=== PATIENT | male | born 1955 | race Caucasian/White ===

== ENCOUNTER 2016-12-10 18:28 | Emergency (ER) | payer OTHER ==
[2016-12-10] MEDS ORDERED: IOPAMIDOL 300 (61%) 150 ML VIAL IV ONE (18:29)
[2016-12-10 21:14] LABS: ABSOLUTE NEUTROPHIL COUNT 3.1 K/mm3 (1.8-7.7); BASO % 0.7 % (0.2-1.0); EOS # 0.2 (0.0-0.5); EOS % 3.2 % (0.9-2.9); HEMATOCRIT 37.3 % (32.0-52.0); HEMOGLOBIN 12.8 gm/l (14.0-18.0); IMM NEUT% 0.4 % (0-1); LYMPH # 1.7 (1.0-4.8); LYMPH % 29.8 % (15-45); MEAN CELL VOLUME 94.4 fl (80.0-94.0); MEAN CORPUSCULAR HEMOGLOBIN 32.4 pg (27.0-31.0); MEAN CORPUSCULAR HGB CONC 34.3 g/dl (33.0-37.0); MEAN PLATELET VOLUME 8.9 fl (7.4-10.4); MONO # 0.6 (0.0-0.8); MONO % 10.2 % (4-12); NEUT % 55.7 % (43-75); PLATELET COUNT 198 K/mm3 (130-400); RED CELL DISTRIBUTION WIDTH 12.8 % (11.5-14.5)
[2016-12-10 21:26] LABS: ALB/GLOB RATIO 1.4 (>1.0); ALBUMIN 4.2 gm/dL (3.5-5.7); CALCIUM 9.4 mg/dL (8.6-10.3)
[2016-12-10 21:47] LABS: SPECIFIC GRAVITY 1.015 (1.001-1.030); URINE BILIRUBIN NEGATIVE (NEGATIVE); URINE BLOOD NEGATIVE (NEGATIVE); URINE GLUCOSE (UA) NEGATIVE (NEGATIVE); URINE LEUKOCYTE ESTERASE NEGATIVE (NEGATIVE); URINE NITRITE NEGATIVE (NEGATIVE); URINE PROTEIN NEGATIVE (NEGATIVE); URINE UROBILINOGEN NORMAL (0-1 mg/dl)
[2016-12-10 21:51] LABS: URINE APPEARANCE CLEAR; URINE COLOR YELLOW
--- NOTE | 2016-12-11 08:40 | CT ---
Exam Type: ABD/PELVIS W/ CON Date and Time: 12/10/2016 9:50 PM Clinical information: Left internal pain Comparison: None Technique: Contiguous axial 4 mm images were obtained from the lung bases through the pelvis after the uneventful IV administration of 125 cc of [id number]. Sagittal and coronal reformations with high resolution lung algorithm images were also obtained at this time. CT DI: 7.4 DLP 352.8 FINDINGS: Lung base :No abnormality is identified at the lung bases. Visualized heart:There is no pericardial effusion. LIVER: Mild diffuse fatty maturation may be present without focal lesion. BILE DUCTS: normal caliber. GALLBLADDER: There may be sludge along the dependent portion of the gallbladder. PANCREAS: within normal limits. SPLEEN: within normal limits. ADRENALS: within normal limits. KIDNEYS: within normal limits. Stomach and small BOWEL: Normal Large bowel: Air and stool are noted within the large bowel. Appendix is not visualized though secondary signs of appendicitis are not seen.Much of the distal large bowel is decompressed limiting assessment. LYMPH NODES: No enlarged mesenteric lymph nodes. PERITONEUM: no ascites or free air, no fluid collection. VESSELS: Mild atherosclerotic disease of the abdominal aorta and branch vessels. RETROPERITONEUM: within normal limits. ABDOMINAL WALL: within normal limits. Bladder: Decompressed but normal. BONES: Grade 1 anterolisthesis of L5 on S1 is present. Multilevel mild to moderate degenerative changes are present. IMPRESSION: No acute inflammatory process is noted within the abdomen or pelvis. Close clinical and radiographic follow-up are recommended. Grade 1 anterolisthesis of L5 on S1 with other incidental findings as above. Preliminary report was provided by [employer] at approximately 2313 hours on 12/11/2016.
== END 2016-12-10 23:30 | disposition home or self-care (01) ==
LOC: ED 18:28
DX: R10.32 Left lower quadrant pain (principal); K21.9 Gastro-esophageal reflux disease without esophagitis; I10 Essential (primary) hypertension
CPT/HCPCS: 85025; 80053; 81003; 74177; 99284 ×2; Q9967